=== PATIENT | female | born 1955 | race Caucasian/White ===

== ENCOUNTER → 2018-06-12 | Outpatient (CLI) | payer MEDICARE, OTHER ==
--- NOTE | 2018-06-12 15:00 | XR ---
EXAMINATION TYPE: XR chest 2V DATE OF EXAM: 06/12/2018 COMPARISON: Prior chest x-ray 10/22/[address] 12/10/2013 HISTORY: COPD, Z87.891 TECHNIQUE: Frontal and lateral views of the chest are obtained. FINDINGS: There is no focal air space opacity, pleural effusion, or pneumothorax seen. Minimal stran d-like density persists in the left lower chest laterally represents scarring. Surgical clips present in the upper abdomen. The cardiac silhouette size is within normal limits. The osseous structures are intact. IMPRESSION: No acute cardiopulmonary process.
--- NOTE | 2018-06-13 11:04 | MM ---
Reason for exam: screening (asymptomatic). Last mammogram was performed 9 months ago. History: Patient is postmenopausal. Physical Findings: A clinical breast exam by your physician is recommended on an annual basis and results should be correlated with mammographic findings. MG 3D Screening Mammo W/Cad Bilateral CC and MLO view(s) were taken. Prior study comparison: September 26, 2017, bilateral MG 3d screening mammo w/cad. September 11, 2016, bilateral MG 3d screening mammo w/cad. There are scattered fibroglandular densities. Stable benign calcifications. There is no discrete abnormality. No significant changes when compared with prior studies. ASSESSMENT: Benign, BI-RAD 2 RECOMMENDATION: Routine screening mammogram of both breasts in 1 year.
== END | disposition home or self-care (01) ==
LOC: RADMAMWWP 11:14
PROVIDERS: ATTEND Family Medicine
DX: Z12.31 Encounter for screening mammogram for malignant neoplasm of breast (principal); Z87.891 Personal history of nicotine dependence
CPT/HCPCS: 71046; 77063; 77067

== ENCOUNTER → 2019-06-09 | Outpatient (CLI) | payer MEDICARE, OTHER ==
--- NOTE | 2019-06-09 14:31 | CTL ---
EXAMINATION TYPE: CT Low Dose Lung DATE OF EXAM ORDERED: 06/09/2019 HISTORY: 63-year-old female Personal history of tobacco use.. Lung cancer screening CT DLP: 148.[address] CTDI: 4.00 mGy Automated exposure control for dose reduction was used. SCREENING VISIT: Baseline COMPARISON: 12/10/2013 TECHNIQUE: Low dose computed tomography scan was performed through the chest at 1 mm thick sections a nd reconstructed images in the coronal and sagittal plane. Additional coronal MIP reconstruction was generated. CT DIAGNOSTIC QUALITY: Satisfactory FINDINGS: Heart normal size with small anterior pericardial effusion measuring 6 m thick. Aorta normal caliber with conventional arch vessel branching anatomy and mild atherosclerotic arch ca lcifications. No thoracic lymphadenopathy by CT size criteria. Mild centrilobular emphysema in the upper lungs. There are stable scattered 3 and 4 mm pulmonary nodules bilaterally, largest measuring 6 mm in the pe ripheral left lower lobe (axial image 234). This may be new or larger from 2014. The thicker slices o n the 2014 exam limits the assessment. On the right, refer to images 151, 155, 180, and 223. On the left, refer to images 65, 129, and 234. Visualized upper abdomen shows cholecystectomy clips. Bones: No osseous destructive process. Normal variant sternal foramina. IMPRESSION: LungRADS Category 3 (probably benign, 1-2% chance of malignancy). Scattered 3 to 4 mm bilateral pulmo nary nodules, largest measuring 6 mm at the left base. RECOMMENDATION: 1. Six-month follow-up low-dose chest CT for reassessment of the 6 mm left lower lobe pulmonary nodul e. The smaller pulmonary nodules are regarded as benign by LungRADS criteria. 2. Smoking cessation. FOLLOW UP CT CHEST RECOMMENDATION: [address] LUNG RAD: Lung-Rad 3 Probably Benign
== END | disposition home or self-care (01) ==
LOC: RADCTMAIN 12:20
PROVIDERS: ATTEND Family Medicine
DX: Z12.2 Encounter for screening for malignant neoplasm of respiratory organs (principal); R91.8 Other nonspecific abnormal finding of lung field; Z87.891 Personal history of nicotine dependence

== ENCOUNTER → 2019-12-23 | Outpatient (CLI) | payer MEDICARE, OTHER ==
--- NOTE | 2019-12-23 11:01 | CT ---
EXAMINATION TYPE: CT chest w con DATE OF EXAM: 12/23/2019 COMPARISON: Prior low-dose lung screening CT June 09, [address] June 09, 2014 HISTORY: Abnormal findings in lungs CT DLP: 1391.2 mGycm. Automated Exposure Control for Dose Reduction was Utilized. TECHNIQUE: CT scan of the thorax is performed following with IV Contrast, patient injected with 80 m L of Isovue 300. FINDINGS: LUNGS: There are scattered micronodules bilaterally redemonstrated most prominent in the lower lungs with most concerning nodule lateral left lung base prior study measuring 6 mm no measuring under 3 mm current study image 49 and being ill-defined. No new greater than 4 mm nodules or masses. Focal line ar scarring anteriorly in both lower lungs redemonstrated. No pleural effusion or pneumothorax eviden t. Mild underlying emphysematous change again seen. MEDIASTINUM: There are stable prominent but subcentimeter bilateral hilar lymph nodes without new gre ater than 1 cm thoracic adenopathy. Small to tiny pericardial effusion is stable anteriorly. No card iomegaly. OTHER: Visualized liver is low dense consistent with fatty infiltration. Cholecystectomy clips are pr esent. Mild calcified plaque of the aorta extends into branch vessels. IMPRESSION: No new or enlarging greater than 4 mm nodules.
== END | disposition home or self-care (01) ==
LOC: RADCTMAIN 09:20
PROVIDERS: ATTEND Family Medicine
DX: R91.8 Other nonspecific abnormal finding of lung field (principal); J98.4 Other disorders of lung
CPT/HCPCS: 82565; 84520; 71260; 36415; Q9967

== ENCOUNTER → 2021-02-03 | Outpatient (CLI) | payer MEDICARE, OTHER ==
--- NOTE | 2021-02-06 11:57 | MM ---
Reason for exam: screening (asymptomatic). Last mammogram was performed 2 years and 8 months ago. History: Patient is postmenopausal. Physical Findings: A clinical breast exam by your physician is recommended on an annual basis and results should be correlated with mammographic findings. MG 3D Screening Mammo W/Cad Bilateral CC and MLO view(s) were taken. Prior study comparison: June 12, 2018, bilateral MG 3d screening mammo w/cad. September 26, 2017, bilateral MG 3d screening mammo w/cad. There are scattered fibroglandular densities. There are benign appearing round, linear calcifications bilaterally. There is no discrete abnormality. ASSESSMENT: Benign, BI-RAD 2 RECOMMENDATION: Routine screening mammogram of both breasts in 1 year.
== END ==
LOC: RADMAMWWP 10:23
PROVIDERS: ATTEND Family Medicine
DX: Z12.31 Encounter for screening mammogram for malignant neoplasm of breast (principal); Z78.0 Asymptomatic menopausal state
CPT/HCPCS: 77063; 77067

== ENCOUNTER → 2022-05-18 | Outpatient (CLI) | payer MEDICARE ==
--- NOTE | 2022-05-18 14:07 | BD ---
EXAMINATION TYPE: Axial Bone Density DATE OF EXAM: 05/18/2022 COMPARISON: FIRST DEXA ......BASELINE STUDY CLINICAL HISTORY: 66 years year old Female. ICD-10 CODE: Z780 ASYMPTOMATIC MENOPAUSAL STATE Height: 62 Weight: 272 FRAX RISK QUESTIONS: Glucocorticoids (More than 3mos): YES (Ex: prednisone, prednisolone, methylprednisolone, dexamethasone, and hydrocortisone). History of Fracture in Adulthood: YES Secondary Osteoporosis: YES 3. Menopause before 45: YES Current Tobacco Use: YES RISK FACTORS HISTORY OF: History of Wrist Fracture: RT [employer] AN ADULT Family History of Osteoporosis: YES, SISTER Postmenopausal woman: YES, AT AGE 42, TOTAL HYST Lost more than 2 inches in height since high school: YES Hyperparathyroidism: NO Adrenal Insufficiency: NO MEDICATIONS: Prednisone or other steroids: YES, FOR LUNGS, FOR ABOUT 5 YRS, COPD Additional Medications: BP MED, STATIN FOR CHOLESTEROL, DIABETIC MEDS, METFORMIN Additional History: HYPERTENSION, CHOLESTEROL, DIABETIC, COPD, HX OF ADULT FX, FAMILY HX NO FX EXAM MEASUREMENTS: Bone mineral densitometry was performed using the [employer] System. Bone mineral density as measured about the Lumbar spine is: ----- L1-L4(G/cm2): 1.472 T Score Values are as follows: ----- L1: 2.4 ----- L2: 2.8 ----- L3: 1.9 ----- L4: 2.5 ----- L1-L4: 2.4 Bone mineral density BASELINE STUDY Bone mineral density about the R hip (g/cm2): 1.175 Bone mineral density about the L hip (g/cm2): 1.173 T Score values are as follows: -----R Neck: 0.5 -----L Neck: 0.0 -----R Total: 1.3 -----L Total: 1.3 Bone mineral density BASELINE STUDY FRAX%s: The graph provided illustrates a 14.1% chance for a major osteoporotic fx and a 0.9% chance f or the hips probability for fx in 10 years time. IMPRESSION: No evidence for osteoporosis or osteopenia NOTE: T-SCORE=SD OF THE YOUNG ADULT MEAN.
--- NOTE | 2022-05-21 17:43 | MM ---
Reason for Exam: Screening (asymptomatic). Last mammogram was performed 1 year(s) and 3 month(s) ago. Patient History: Menarche at age 16. First Full-Term at age 18. Hysterectomy at age 53. Postmenopausal. Mother had breast cancer at or over age 50. Risk Values: Stacy 5 year model risk: 2.8%. NCI Lifetime model risk: 10.0%. Prior Study Comparison: 09/26/2017 Bilateral Screening Mammogram, [facility]. 06/12/2018 Bilateral Screening Mammogram, [facility]. 02/03/2021 Bilateral Screening Mammogram, [facility]. Tissue Density: There are scattered fibroglandular densities. Findings: Analyzed By CAD. Pattern appears symmetrical and stable. There are scattered benign calcifications present bilaterally. No suspicious groups of microcalcifications, spiculated or lobular masses, architectural distortion or other secondary signs of malignancy are mammographically apparent. Overall Assessment: Benign, BI-RAD 2 Management: Screening Mammogram of both breasts in 1 year. A negative mammogram report should not preclude additional follow up of suspicious palpable abnormalities. Patient should continue monthly self breast exam. A clinical breast exam by your physician is recommended on an annual basis and results should be correlated with mammographic findings. Electronically signed and approved by: Govind Brownlee D.O. Radiologis
== END | disposition home or self-care (01) ==
LOC: RADMAMWWP 09:21
PROVIDERS: ATTEND Family Medicine
DX: Z12.31 Encounter for screening mammogram for malignant neoplasm of breast (principal); Z78.0 Asymptomatic menopausal state
CPT/HCPCS: 77063; 77067; 77080

== ENCOUNTER → 2023-05-21 | Outpatient (CLI) | payer MEDICARE ==
--- NOTE | 2023-05-22 20:10 | MM ---
Reason for Exam: Screening (asymptomatic). Last screening mammogram was performed 12 month(s) ago. Patient History: Menarche at age 16. First Full-Term at age 18. Hysterectomy at age 53. Postmenopausal. Mother had breast cancer at or over age 50. Risk Values: Stacy 5 year model risk: 2.9%. NCI Lifetime model risk: 9.7%. Prior Study Comparison: 06/12/2018 Bilateral Screening Mammogram, [facility]. 02/03/2021 Bilateral Screening Mammogram, [facility]. 05/18/2022 Bilateral MG 3D screening mammo w/cad, [facility]. Tissue Density: The breast tissue is almost entirely fat. Findings: Analyzed By CAD. Scattered benign secretory calcifications are demonstrated bilaterally. There is no suspicious group of microcalcifications or new suspicious mass in either breast. Overall Assessment: Benign, BI-RAD 2 Management: Screening Mammogram of both breasts in 1 year. . Patient should continue monthly self-breast exams. A clinical breast exam by your physician is recommended on an annual basis. This exam should not preclude additional follow-up of suspicious palpable abnormalities. Note on Stacy scores and lifetime risk: 1. A Stacy score greater than 3% is considered moderate risk. If this is the case, consider specialist referral to assess eligibility for a risk reducing agent. 2. If overall lifetime risk for the development of breast cancer is 20% or higher, the patient may qualify for future screening with alternating mammogram and breast MRI. Electronically signed and approved by: Greg Nix M.D. Radiologist
== END | disposition home or self-care (01) ==
LOC: RADMAMWWP 10:16
PROVIDERS: ATTEND Family Medicine
DX: Z12.31 Encounter for screening mammogram for malignant neoplasm of breast (principal); Z78.0 Asymptomatic menopausal state; Z80.3 Family history of malignant neoplasm of breast
CPT/HCPCS: 77063; 77067

== ENCOUNTER → 2023-11-06 | Outpatient (CLI) | payer MEDICARE ==
--- NOTE | 2023-11-06 12:15 | CTL ---
EXAMINATION TYPE: CT Low Dose Lung DATE OF EXAM ORDERED: 11/06/2023 HISTORY: Long-term tobacco use. Lung cancer screening CT DLP: 133.[address] CTDI: 4 mGy Automated exposure control for dose reduction was used. SCREENING VISIT: First step to baseline COMPARISON: Prior study 2018 TECHNIQUE: Low dose computed tomography scan was performed through the chest at 1 mm thick sections a nd reconstructed images in multiple planes at 1 mm and [address] DIAGNOSTIC QUALITY: Satisfactory FINDINGS: LUNG NODULES: Present, detailed below: A few scattered small nodules are redemonstrated. For referenc e, Stable 7 x 5 mm peripheral left lower lobe nodule axial image 225. No new or enlarging greater bhakti n 6 mm pulmonary nodules. LUNGS: COPD: Severity: None Fibrosis: Severity: None Lymph nodes: None Other findings: None RIGHT PLEURAL SPACE: Effusion: None Calcification: None Thickening: None Pneumothorax: None LEFT PLEURAL SPACE: Effusion: None Calcification: None Thickening: None Pneumothorax: None HEART: Heart Size: Normal Coronary Calcification: None Pericardial Effusion: Tiny OTHER FINDINGS: Upper abdomen: Visualized liver is heterogeneously hypodense consistent with fatty infiltrative hepat ocellular disease Bony thorax: Mild to moderate Multilevel spurring in thoracic spine is redemonstrated Supraclavicular region: None Other: None IMPRESSION: Stable scattered small nodules in the lower lungs. No new or enlarging greater than a 6 m m pulmonary nodules. CT LUNG RAD AND CT CHEST RECOMMENDATION: Lung-Rad 2 Benign Appearance or Behavior: Continue annual sc reening with LDCT in 12 months. S Modifier (other clinically significant findings): None
== END | disposition home or self-care (01) ==
LOC: RADCTMAIN 10:20
PROVIDERS: ATTEND Family Medicine
DX: Z12.2 Encounter for screening for malignant neoplasm of respiratory organs (principal); F17.210 Nicotine dependence, cigarettes, uncomplicated; R91.8 Other nonspecific abnormal finding of lung field
CPT/HCPCS: 71271

== ENCOUNTER → 2025-04-05 | Outpatient (CLI) | payer MEDICARE, OTHER ==
--- NOTE | 2025-04-05 13:54 | CTL ---
EXAMINATION TYPE: CT Low Dose Lung DATE OF EXAM ORDERED: 04/05/2025 COMPARISON: CT Low Dose Lung 11/06/2023, 06/09/2019, CT chest 12/23/2019 CLINICAL INDICATION: Female, 69 years old with history of Z12.2 Screening; PHH, personal tobacco use, Lung cancer screening, History of Smoking/tobacco use. TECHNIQUE: Low dose computed tomography scan was performed through the chest at 1 mm thick sections a nd reconstructed images in multiple planes at 1 mm and [address] DLP: 83.[address] CTDI: 2.4 mGy Automated exposure control for dose reduction was used. CT DIAGNOSTIC QUALITY: Limited, but interpretable FINDINGS: Nodules: Few scattered stable small nodules redemonstrated. Example includes a left lower lobe 7 x 5 mm periph eral nodule (series 4, image 226). No new or enlarging greater than 6 mm pulmonary nodules. LUNGS: COPD: Severity: Mild Fibrosis: Severity: None Lymph nodes: None Other findings: None RIGHT PLEURAL SPACE: Effusion: None Calcification: None Thickening: None Pneumothorax: None LEFT PLEURAL SPACE: Effusion: None Calcification: None Thickening: None Pneumothorax: None HEART: Heart Size: Normal Coronary Calcification: None Pericardial Effusion: None OTHER FINDINGS: Upper abdomen: The visualized liver is heterogenously hypodense consistent with fatty infiltrative he patocellular disease. Bony thorax: Mild multilevel degenerative disc disease. Supraclavicular region: None Other: Atherosclerotic calcification of the aorta and its branches. IMPRESSION: 1. Stable scattered small nodules. No new or enlarging greater than a 6 mm pulmonary nodules. 2. Mild emphysematous changes. CT LUNG RAD AND CT CHEST RECOMMENDATION: Lung-Rad 2 Benign Appearance or Behavior: Continue annual sc reening with LDCT in 12 months. S Modifier (other clinically significant findings): None [facility], , 04/05/2025 1:52 PM
== END | disposition home or self-care (01) ==
LOC: RADCTMAIN 11:59
PROVIDERS: ATTEND Family Medicine
DX: Z12.2 Encounter for screening for malignant neoplasm of respiratory organs (principal); F17.210 Nicotine dependence, cigarettes, uncomplicated; R91.8 Other nonspecific abnormal finding of lung field; J43.9 Emphysema, unspecified
CPT/HCPCS: 71271

== ENCOUNTER → 2025-06-28 | Outpatient (CLI) | payer MEDICARE, OTHER ==
--- NOTE | 2025-06-28 17:46 | MM ---
Reason for Exam: Screening (asymptomatic). Last mammogram was performed 2 year(s) and 1 month(s) ago. Patient History: Menarche at age 16. First Full-Term at age 18. Left ovary removed at age 53. Right ovary removed at age 53. Hysterectomy at age 53. Postmenopausal. Mother had breast cancer at or over age 50. Risk Values: Stcay 5 year model risk: 2.9%. NCI Lifetime model risk: 8.9%. Prior Study Comparison: 02/03/2021 Bilateral Screening Mammogram, [facility]. 05/18/2022 Bilateral MG 3D screening mammo w/cad, [facility]. 05/21/2023 Bilateral MG 3D screening mammo w/cad, [facility]. Tissue Density: There are scattered areas of fibroglandular density. Findings: Analyzed By CAD. Benign bilateral secretory calcifications. There is no suspicious group of microcalcifications or new suspicious mass in either breast. Overall Assessment: Benign, BI-RAD 2 Management: Screening Mammogram of both breasts in 1 year. Patient should continue monthly self-breast exams. A clinical breast exam by your physician is recommended on an annual basis. This exam should not preclude additional follow-up of suspicious palpable abnormalities. Note on Stacy scores and lifetime risk: 1. A Stacy score greater than 3% is considered moderate risk. If this is the case, consider specialist referral to assess eligibility for a risk reducing agent. 2. If overall lifetime risk for the development of breast cancer is 20% or higher, the patient may qualify for future screening with alternating mammogram and breast MRI. [facility], , 06/28/2025 5:43 PM. Electronically signed and approved by: Greg Nix M.D. Radiologist
== END | disposition home or self-care (01) ==
LOC: RADMAMWWP 09:14
PROVIDERS: ATTEND Family Medicine
DX: Z12.31 Encounter for screening mammogram for malignant neoplasm of breast (principal); R92.323 Mammographic fibroglandular density, bilateral breasts; Z78.0 Asymptomatic menopausal state; Z80.3 Family history of malignant neoplasm of breast
CPT/HCPCS: 77063; 77067